=== PATIENT | male | born 1955 | race African-American/Black ===

== ENCOUNTER 2023-12-23 05:32 | Observation (INO) | payer MEDICARE, BC, OTHER, SELFPAY ==
[2023-12-23] VITALS (17 sets, daily range): BP systolic 115–154; BP diastolic 72–90; PULSE 53–68; RESP 12–20; TEMP 35.8–36.8; O2SAT 95–100; BMI 26.9
--- NOTE | ~2023-12-23 | XR_ITS ---
Portable chest x-ray Comparison: None Clinical History: Weakness Findings: Lungs are clear, without focal consolidation or pleural effusion. Cardiomediastinal silho uette is unremarkable. Bones and soft tissues are unremarkable. Impression: Normal chest. Reviewed, dictated and finalized at location . ITE SANDBLASTER APPRENTICE Impression: Normal chest.
--- NOTE | ~2023-12-23 | CT_ITS ---
Noncontrast CT scan of the cervical spine Technique: Multiple contiguous axial [address] images of the cervical spine were obtained and rec onstructed in 2D sagittal and coronal planes on the acquisition scanner. Dose reduction technique was used on this scan by utilizing automated exposure control, adjustment of the mA and/or kV according to patient size. The dose-length product (DLP) was 529.83 mGy-cm. Clinical History: Pain Findings: No fractures or dislocations. There is mild to moderate degenerative disc narrowing at C5- C6 and C6-C7. No prevertebral soft tissue swelling. Impression: No fracture or subluxation of the cervical spine. Reviewed, dictated and finalized at location . TROCARDIOGRAPH REPAIRER Impression: No fracture or subluxation of the cervical spine.
--- NOTE | ~2023-12-23 | CT_ITS ---
Non-contrast Head CT History: Head injury Technique: Axial non-contrast imaging of the brain was performed. Dose reduction technique was used on this scan by utilizing automated exposure control and iterative reconstruction technique. The dose -length product (DLP) was 756.67 mGy-cm. Findings: There is no evidence of intracranial hemorrhage, mass lesion, or acute infarct. Brain par enchyma appears normal. The ventricles and subarachnoid spaces are normal in size. The calvarium ap pears normal. There is right sphenoid sinus disease. The remaining visualized paranasal sinuses and m astoid air cells are clear. Impression: No intracranial abnormality seen. Right sphenoid sinus disease. Reviewed, dictated and finalized at location M. RAISER Impression: No intracranial abnormality seen. Right sphenoid sinus disease.
--- NOTE | ~2023-12-23 | MR_ITS ---
MRI of the brain Clinical History: Dizziness Technique: Axial and sagittal T1-weighted images were acquired. These were followed by axial T2-weigh richie, diffusion weighted, gradient, and FLAIR images. Following intravenous administration of 17 cc Mu ltiHance gadolinium, T1-weighted fat-sat imaging was performed in the axial and coronal planes. Findings: No significant signal abnormality seen in the brain parenchyma. No acute infarct, intracran ial hemorrhage, or mass lesion identified. Ventricles and subarachnoid spaces are unremarkable. Orbits are unremarkable. Paranasal sinuses and m astoid air cells are essentially clear. Major intracranial flow voids are intact. Sagittal midline structures are intact. No abnormal postcontrast enhancement identified. IMPRESSION: Unremarkable exam. Reviewed, dictated and finalized at location M. CTOR OF SPECIAL EDUCATION IMPRESSION: Unremarkable exam.
--- NOTE | 2023-12-23 05:55 | ECG_ITS ---
Measurements Intervals [place] Rate: 63 P: 51 MO: 181 QRS: -24 QRSD: 101 T: 5 QT: 421 QTc: 431 Interpretive Statements SINUS RHYTHM LOW QRS VOLTAGE IN PRECORDIAL LEADS BASELINE WANDER- I, II, III, AVR, AVL, AVF BORDERLINE ECG NO PREVIOUS ECG AVAILABLE FOR COMPARISON Electronically Signed On 12-23-2023 6:50:23 SOFTWARE EDUCATOR by Vick Morales D.O.
[2023-12-23] MEDS: SODIUM CHLORIDE 0.9% IV 1,000 ML 999 ML IV CONT (06:09)
[2023-12-23] MEDS: MECLIZINE HCL 25 MG TABLET PO ×2 (06:10→17:23)
[2023-12-23] MEDS: METOCLOPRAMIDE HCL INJ 10 MG/2 ML VIAL IV PUSH (06:10)
[2023-12-23 06:15] LABS: Basophils Percent Auto 0.5 % (0.2-1.2); Eosinophils Absolute Auto 0.1 K/mm3 (0-0.3); Eosinophils Percent Auto 3.4 % (0-4.4); Hematocrit 42.3 % (42.0-52.0); Hemoglobin 13.8 g/dL (14.0-18.0); Immature Granulocyte Absolute 0.05 K/mm3 (0.00-0.031); Immature Granulocyte Percent A 1.2 % (0-0.5); Lymphocytes Absolute Auto 1.39 K/mm3 (0.9-3.2); Lymphocytes Percent Auto 33.5 % (18.3-44.2); Mean Corpuscular HGB Conc 32.6 g/dl (32-36); Mean Corpuscular Hemoglobin 29.4 pg (26-34); Mean Corpuscular Volume 90.2 fl (80-100); Mean Platelet Volume 9.4 fl (7.4-10.4); Monocytes Absolute Auto 0.4 K/mm3 (0.1-0.6); Monocytes Percent Auto 8.7 % (2.6-8.5); Neutrophils Absolute Auto 2.2 K/mm3 (1.3-6.7); Neutrophils Percent Auto 52.7 % (45.5-73.1); Platelet Count Result 128 k/mm3 (150-375); Red Blood Count 4.69 M/mm3 (4.6-6.20); Red Cell Distribution Width 13.2 % (11.5-14.5); White Blood Count 4.2 K/mm3 (4.5-10.0)
[2023-12-23 06:25] LABS: Alanine Aminotransferase 36 U/L (6-50); Albumin Level 3.9 g/dL (3.5-5.1); Alkaline Phosphatase 69 U/L (38-126); Anion Gap 8 mmol/L (8-16); Aspartate Amino Transferase 30 U/L (17-59); Bilirubin,Total 0.7 mg/dL (0.2-1.3); Blood Urea Nitrogen 10 mg/dL (9-20); Calcium 9.1 mg/dL (8.4-10.2); Carbon Dioxide 27 mmol/L (22-30); Chloride 103 mmol/L (98-107); Estimated CRCL calculation 68 ml/min; Estimated Glomerular Filt Rate > 60; Glucose 163 mg/dL (65-110); Lactic Acid Reflex 1.4 mmol/L (0.7-2.0); Magnesium 1.7 mg/dL (1.6-2.3); Potassium 4.1 mmol/L (3.4-5.0); Sodium 138 mmol/L (137-145)
--- NOTE | 2023-12-23 06:29 | ED.GENADULT ---
HPI - General Adult General Chief complaint: Dizziness <Hal Mukherjee MD - Last Filed: 12/23/23 06:30> Stated complaint: dizziness <Hal Mukherjee MD - Last Filed: 12/23/23 06:30> Time Seen by Provider: 12/23/23 05:46 <Hal Mukherjee MD - Last Filed: 12/23/23 06:30> History of Present Illness HPI narrative: Patient is a 68-year-old gentleman who presents emergency department with chief complaint of dizziness. Patient reports that he has prior history of dizziness and vertigo patient states that he was getting up out of bed felt as though he was spinning and then fell backwards. The patient reports no loss of consciousness but does report that he has worsening pain in his neck that is exacerbation of chronic neck pain. The patient denies numbness or tingling denies focal neurological deficit. Patient reports that he is followed at the [facility] for this by Neurology. <Hal Mukherjee MD - Last Filed: 12/23/23 06:30> Related Data Home medications: Home Medications Medication Instructions Recorded Confirmed aspirin 81 mg tablet,delayed 81 mg PO DAILY 12/23/23 12/23/23 release atorvastatin 80 mg tablet 40 mg PO DAILY 12/23/23 12/23/23 bupropion HCl 150 mg 24 hr tablet, 150 mg PO DAILY 12/23/23 12/23/23 extended release carvedilol 6.25 mg tablet 6.25 mg PO BID 12/23/23 12/23/23 cyanocobalamin (vitamin B-12) 25 100 mcg PO DAILY 12/23/23 12/23/23 mcg tablet escitalopram oxalate 10 mg tablet 10 mg PO EVERY OTHER DAY 12/23/23 12/23/23 lisinopril 40 mg tablet 40 mg PO DAILY 12/23/23 12/23/23 metformin 500 mg tablet,extended 500 mg PO DAILY 12/23/23 12/23/23 release 24 hr pantoprazole 40 mg tablet,delayed 40 mg PO DAILY 12/23/23 12/23/23 release tiotropium bromide 2.5 1 puff inhalation DAILY 12/23/23 12/23/23 mcg/actuation mist for inhalation (Spiriva Respimat) trazodone 100 mg tablet 150 mg PO HS 12/23/23 12/23/23 <Hal Mukherjee MD - Last Filed: 12/23/23 06:30> Allergies/adverse reactions: Allergies Allergy/AdvReac Type Severity Reaction Status Date / Time peanut Allergy Rash Verified 12/23/23 17:53 Penicillins Allergy Swelling Verified 12/23/23 05:35 tomato Allergy Rash Verified 12/23/23 17:53 <Hal Mukherjee MD - Last Filed: 12/23/23 06:30> Review of Systems Review of Systems: A 10 system review of systems was completed on the patient and is negative except for what is stated in the HPI. Nursing and ancillary documentation was reviewed. <Hal Mukherjee MD - Last Filed: 12/23/23 06:30> PMFSH Social History Social History: Social History Smoking packs per day: 2 Smoking cigarettes per day: 40.0 Years smoked: 52 Smoking pack-years: 104.00 Smoking status: Former smoker Alcohol intake: never Substance use: former Substance use type: does not use Other substance usage details: recreational Do You Feel Safe in your Home?: Yes Lack of Transportation: No Lack of Food: Never True Current Housing: I Have Housing Concerned About Future Housing: No Difficulty Paying Gas/Electric Bills: No Difficulty Paying for Meds: No Currently Unemployed: No Education: Associate Degree Difficulty w/ Childcare or Family Care: No Spiritual care concerns: No <Hal Mukherjee MD - Last Filed: 12/23/23 06:30> Exam Narrative: GENERAL: Well-appearing, well-nourished, and in no acute distress. HEAD: Normocephalic, atraumatic. EYES: PERRLA and EOMI. ENT: Nares clear, no rhinorrhea or epistaxis. Mucous membranes moist. NECK: Supple. CHEST: Clear to auscultation. No respiratory distress. HEART: Regular rate and rhythm. No murmur heard. Normal peripheral pulses. ABDOMEN: Soft, nontender, nondistended, normal active bowel sounds. EXTREMITIES: Normal range of motion. No edema. SKIN: Warm, dry, no rash
[2023-12-23 06:36] LABS: Troponin I < 0.012 ng/mL (0.000-0.034)
[2023-12-23] MEDS: diazePAM INJ (*CRX) 10 MG/2 ML SYRINGE 5 MG IV PUSH (07:16)
--- NOTE | 2023-12-23 07:30 | PC.NURSE ---
Pt attempting to urinate, unsuccessful. Pt agrees to be straight cathed
[2023-12-23 08:22] LABS: Appearance Urine Clear (Clear); Bilirubin Urine Negative (Negative); Blood Urine Negative (Negative); Color Urine Yellow (Yellow); Glucose Urine UA Negative (Negative); Ketones Urine Trace mg/dL (Negative); Leukocyte Esterase Ur Negative LEU/UL (Negative); Nitrate Urine Negative (Negative); Protein Urine Negative (Negative); Urobilinogen Urine 0.2 mg/dL (<2.0)
[2023-12-23 08:24] LABS: Add Urine Microscopic? NO
--- NOTE | 2023-12-23 09:30 | PM.IMHP ---
H&P: HPI History of Present Illness Date/Time: 12/23/23 09:30 Chief Complaint: Dizziness Narrative: ?Patient is a 68-year-old gentleman who presents emergency department with chief complaint of dizziness.? patient states that he was getting up out of bed felt as though he was spinning and then fell backwards when he went to the bathroom. Patient denied loss of consciousness, chest pain, palpitation, nausea vomiting, diaphoresis. Patient also denies headache, focal weakness, vision change, dysuria. Patient reports that he is followed at the [facility] for this by Neurology, patient has history of dizziness. In the ED, patient is afebrile, blood pressure stable, no O2 desaturation,?patient had a negative head CT, CT cervical spine shows no fracture or subluxation, I reviewed the chest x-ray, that showed no acute cardiopulmonary issues.? Patient received meclizine Reglan Valium, symptoms persist, we admit patient for further issue and management Review of Systems Review of Systems: ROS negative except above PMFSH Social History Social History Smoking packs per day: 2 Smoking cigarettes per day: 40.0 Years smoked: 52 Smoking pack-years: 104.00 Smoking status: Former smoker Alcohol intake: never Substance use: former Substance use type: does not use Other substance usage details: recreational Do You Feel Safe in your Home?: Yes Lack of Transportation: No Lack of Food: Never True Current Housing: I Have Housing Concerned About Future Housing: No Difficulty Paying Gas/Electric Bills: No Difficulty Paying for Meds: No Currently Unemployed: No Education: Associate Degree Difficulty w/ Childcare or Family Care: No Spiritual care concerns: No Meds Home Medications and Allergies Home Medications Medication Instructions Recorded Confirmed Type aspirin 81 mg tablet,delayed 81 mg PO DAILY 12/23/23 12/23/23 History release atorvastatin 80 mg tablet 80 mg PO DAILY 12/23/23 12/23/23 History bupropion HCl 150 mg 24 hr tablet, 150 mg PO DAILY 12/23/23 12/23/23 History extended release cyanocobalamin (vitamin B-12) 25 25 mcg PO DAILY 12/23/23 12/23/23 History mcg tablet lisinopril 40 mg tablet 40 mg PO DAILY 12/23/23 12/23/23 History metformin 500 mg tablet,extended 500 mg PO DAILY 12/23/23 12/23/23 History release 24 hr pantoprazole 40 mg tablet,delayed 40 mg PO DAILY 12/23/23 12/23/23 History release tiotropium bromide 2.5 1 puff inhalation DAILY 12/23/23 12/23/23 History mcg/actuation mist for inhalation (Spiriva Respimat) Allergies Allergy/AdvReac Type Severity Reaction Status Date / Time Penicillins Allergy Swelling Verified 12/23/23 05:35 Vital Signs Vital Signs - 24 hr 12/23/23 05:30 12/23/23 06:09 12/23/23 05:42 Temperature 98.2 F Pulse Rate 68 65 60 Respiratory Rate 14 15 Blood Pressure 132/88 Pulse Oximetry 97 96 Oxygen Delivery Room Air 12/23/23 05:45 12/23/23 06:00 12/23/23 06:01 Temperature Pulse Rate 60 61 64 Respiratory Rate 19 14 15 Blood Pressure 132/84 Pulse Oximetry 97 95 96 Oxygen Delivery 12/23/23 06:24 12/23/23 07:19 Temperature Pulse Rate 65 65 Respiratory Rate 19 16 Blood Pressure 132/90 Pulse Oximetry 97 100 Oxygen Delivery Exam Narrative: GENERAL: Pleasant, in no acute distress. Well-nourished. - EYES: EOMI. Anicteric. - HENT: Moist mucous membranes. - LUNGS: Clear to auscultation bilaterally, no wheezing, rhonchi, or rales. - CARDIOVASCULAR: Regular rate and rhythm. No murmur. No JVD. - ABDOMEN: Soft, non-tender and non-distended. No palpable masses. - EXTREMITIES: No edema. Peripheral pulses 2+. Non-tender. - NEUROLOGIC: No focal neurological deficits. CN II-XII grossly intact. - PSYCHIATRIC: Awake, Alert and oriented x 3. Appropriate mood and affect. - SKIN: No rashes or lesions. Warm. - LYMPH: No cervical lymph
[2023-12-23 12:19] LABS: Basophils Percent Auto 0.4 % (0.2-1.2); Eosinophils Percent Auto 0.5 % (0-4.4); Hematocrit 42.5 % (42.0-52.0); Hemoglobin 13.7 g/dL (14.0-18.0); Immature Granulocyte Absolute 0.05 K/mm3 (0.00-0.031); Immature Granulocyte Percent A 0.9 % (0-0.5); Immature Platelet Fraction Pct 2.5 % (0.9-11.2); Lymphocytes Percent Auto 19.6 % (18.3-44.2); Mean Corpuscular HGB Conc 32.2 g/dl (32-36); Mean Corpuscular Hemoglobin 29.2 pg (26-34); Mean Corpuscular Volume 90.6 fl (80-100); Mean Platelet Volume 9.5 fl (7.4-10.4); Monocytes Absolute Auto 0.4 K/mm3 (0.1-0.6); Monocytes Percent Auto 6.2 % (2.6-8.5); Neutrophils Absolute Auto 4.1 K/mm3 (1.3-6.7); Neutrophils Percent Auto 72.4 % (45.5-73.1); Platelet Count Result 138 k/mm3 (150-375); Red Blood Count 4.69 M/mm3 (4.6-6.20); Red Cell Distribution Width 13.2 % (11.5-14.5); White Blood Count 5.6 K/mm3 (4.5-10.0)
[2023-12-23 12:29] LABS: Alanine Aminotransferase 36 U/L (6-50); Albumin Level 3.9 g/dL (3.5-5.1); Alkaline Phosphatase 68 U/L (38-126); Anion Gap 6 mmol/L (8-16); Aspartate Amino Transferase 31 U/L (17-59); Bilirubin,Total 0.7 mg/dL (0.2-1.3); Blood Urea Nitrogen 10 mg/dL (9-20); Calcium 9.2 mg/dL (8.4-10.2); Carbon Dioxide 28 mmol/L (22-30); Chloride 105 mmol/L (98-107); Estimated CRCL calculation 62 ml/min; Estimated Glomerular Filt Rate > 60; Glucose 140 mg/dL (65-110); Potassium 5.3 mmol/L (3.4-5.0); Sodium 139 mmol/L (137-145)
[2023-12-23] MEDS: ACETAMINOPHEN 325 MG TABLET 650 MG PO (17:51)
[2023-12-23 22:00] LABS: Glucose Point of Care 102 mg/dl (65-105)
[2023-12-24] MEDS: ACETAMINOPHEN 325 MG TABLET 650 MG PO (05:04)
[2023-12-24 05:22] VITALS: BP 116/74; PULSE 53; RESP 18; TEMP 36.3; O2SAT 96
[2023-12-24] MEDS: MECLIZINE HCL 25 MG TABLET PO (08:50)
[2023-12-24] MEDS: oxyCODONE HCL (*CRX) 5 MG TAB IR PO ×2 (08:50→13:50)
--- NOTE | 2023-12-24 12:35 | PM.DS ---
DS: Admitting Diagnosis Discharge Date 12/24/2023 Admitting Diagnosis Dizziness DS: Discharge Diagnosis Discharge Diagnosis (1) Vertigo: Code(s): R42 - Dizziness and giddiness Status: Acute (2) Dizziness: Code(s): R42 - Dizziness and giddiness Status: Acute Plan Pt admitted with Dizziness CT head +cervical CT shows no acute issues Start meclizine p.o. p.r.n., antiemetic medication p.r.n. Mri head was negative CT head showed - Right sphenoid sinus disease. pt dc with course of ABX. pt states he will follow up with ENT MD Pt is a [facility] pt will arrange E[facility] apt through them DS: Summary Hospital Course Hospital Course: 68-year-old gentleman who presents emergency department with chief complaint of dizziness.? patient states that he was getting up out of bed felt as though he was spinning and then fell backwards when he went to the bathroom.? Patient denied loss of consciousness, chest pain, palpitation, nausea vomiting, diaphoresis.? Patient also denies headache, focal weakness, vision change, dysuria. ? Patient reports that he is followed [facility] for [facility] by Neu[facility], patient has history of dizziness. In the ED, patient is afebrile, blood pressure stable, no O2 desaturation,?patient had a negative head CT, CT cervical spine shows no fracture or subluxation, I reviewed the chest x-ray, that showed no acute cardiopulmonary issues.? Patient received meclizine Reglan Valium, symptoms persist, we admit patient for further issue and management. Pt admitted with Dizziness CT head +cervical CT shows no acute issues Start meclizine p.o. p.r.n., antiemetic medication p.r.n. Mri head was negative Orthostatics were negative CT head showed - Right sphenoid sinus disease. pt dc with course of ABX. pt states he will follow up with ENT MD Pt is [facility] pt will arrange [facility] apt through them Time Spent with Patient Time attestation: Total time spent providing and/or coordinating discharge services:40 minutes on day of DC Exam Narrative: GENERAL: Pleasant, in no acute distress. Well-nourished. - EYES: EOMI. Anicteric. - HENT: Moist mucous membranes. - LUNGS: Clear to auscultation bilaterally, no wheezing, rhonchi, or rales. - CARDIOVASCULAR: Regular rate and rhythm. No murmur. No JVD. - ABDOMEN: Soft, non-tender and non-distended. No palpable masses. - EXTREMITIES: No edema. Peripheral pulses 2+. Non-tender. - NEUROLOGIC: No focal neurological deficits. CN II-XII grossly intact. - PSYCHIATRIC: Awake, Alert and oriented x 3. Appropriate mood and affect. - SKIN: No rashes or lesions. Warm. - LYMPH: No cervical lymphadenopathy. DS: Data Data Completed and Pending Labs on day of discharge: Labs from last 24 hours 12/23/23 21:32 POC Capillary Glucose 102 Discharge Plan Discharge Attending physician on discharge: Shania Whittington Consulting providers: Vick Morales; Julio Jewell Discharging Clinician: Shania Whittington Anticipated Discharge Date/Time: 12/24/23 12:29 Patient Disposition: Home, Self-Care Activity: as tolerated Diet: regular Discharge Instructions: Follow up with ENT for ears check Dc with course of ABX Patient Instructions: Antibiotic Form Stand Alone Forms: General Discharge Information Follow-up/Referrals: UNKNOWN,DOCTOR [Primary Care Provider] - ([facility] ) Discharge Medications: New meclizine 25 mg Tablet 25 mg PO BID Qty: 60 0RF doxycycline hyclate 100 mg capsule 100 mg PO BID Qty: 10 0RF Continued bupropion HCl 150 mg tablet extended release 24 hr 150 mg PO DAILY atorvastatin 80 mg tablet 40 mg PO DAILY aspirin 81 mg tablet,delayed release (DR/EC) 81 mg PO DAILY metformin 500 mg tablet extended release 24 hr 500 mg PO BID pantoprazole 40 mg tablet,delayed release (DR/EC) 40 mg PO DAILY lisinopril 40 mg tablet 40 mg PO DAILY cyanocobalamin (vitamin B-12) 25 mcg Ta
[2023-12-24] MEDS: lisinopriL 20 MG TABLET 40 MG PO (13:40)
[2023-12-24] MEDS: ATORVASTATIN 40 MG TABLET PO (13:40)
[2023-12-24] MEDS: PANTOPRAZOLE 40 MG TABLET PO (13:40)
[2023-12-24] MEDS: ESCITALOPRAM OXALATE 10 MG TABLET PO (13:40)
[2023-12-24] MEDS: buPROPion HCL XL (24 HR) 150 MG TABCR PO (13:41)
[2023-12-24] MEDS: ASPIRIN 81 MG ENTERIC TABLET PO (13:41)
[2023-12-24 13:42] VITALS: PULSE 69
[2023-12-24] MEDS: carvediloL 6.25 MG TABLET PO (13:42)
[2023-12-24 13:45] VITALS: BP 131/67; BP 134/88; BP 140/75
[2023-12-24] MEDS: UMECLIDINIUM BROMIDE 62.5 MCG ELLIPTA 1 PUFF INHALATION (14:02)
== END 2023-12-24 14:06 | disposition home or self-care (01) ==
LOC: ANHED 08:52 → ANH3MEDSUR 10:00 → ANH2MED 12-24 12:35 → ANH3MEDSUR 12-25 10:20
PROVIDERS: Admitting Provider Hospitalist; Emergency Provider Emergency Medicine; Visit Provider Family Medicine
DX: R42 Dizziness and giddiness (principal); R53.1 Weakness; M48.02 Spinal stenosis, cervical region; J32.3 Chronic sphenoidal sinusitis; Z87.891 Personal history of nicotine dependence; Z79.82 Long term (current) use of aspirin; Z79.84 Long term (current) use of oral hypoglycemic drugs; Z79.51 Long term (current) use of inhaled steroids; Z79.891 Long term (current) use of opiate analgesic; Z79.899 Other long term (current) drug therapy
CPT/HCPCS: 36415; 70450; 70553; 71045; 72125; 80053; 81003; 82948; 83605; 83735; 84484; 85025; 85055; 93005; 94640; 96361; 96374; 96375; 99285; A9270; A9577; G0378; J2765; J3360; J7030; L0140